=== PATIENT | male | born 1950 | race Hispanic/Latino ===

== ENCOUNTER 2017-05-10 18:51 | Emergency (ER) | payer OTHER, MEDICARE ==
[~2017-05-10] VITALS: Ht 165.1 cm; Wt 88.5 kg
[2017-05-10 19:07] VITALS: BP 152/67
[2017-05-10] MEDS ORDERED: LEVOTHYROXINE112 MCG PO (20:26)
[2017-05-10] MEDS ORDERED: SIMVASTATIN20 M2 PO (20:27)
[2017-05-10] MEDS ORDERED: CARVEDILOL25 M1 PO (20:27)
[2017-05-10] MEDS ORDERED: ALLOPURINOL300 M1 PO (20:27)
[2017-05-10] MEDS ORDERED: PANTOPRAZOLE SO40 M1 PO (20:27)
[2017-05-10] MEDS ORDERED: DILTIAZEM 24HR240 MG PO (20:27)
--- NOTE | 2017-05-10 20:38 | ED HEAD/FACIAL INJ COMPLAINT ---
History of Present Illness General Chief Complaint: Facial or Head Injury Stated Complaint: LAC TO HEAD S/P FALL Source: patient, family Exam Limitations: language barrier Vital Signs & Intake/Output Vital Signs & Intake/Output Vital Signs Date Time Temp Pulse Resp B/P B/P Pulse O2 O2 Flow FiO2 Mean Ox Delivery Rate 05/107 98.3 76 15 152/67 96 Room Air Room Air ED Intake and Output 05/11 0000 05/10 1200 Intake Total Output Total Balance Patient 195 lb Weight Weight Reported by Patient Measurement Method Allergies Coded Allergies: No Known Allergies (05/10/17) Reconcile Medications Allopurinol 300 MG TABLET 1 TAB PO DAILY GOUT (Reported) Augmentin (Augmentin 500-125 Tablet) 500 MG-125 MG TABLET 1 TAB PO BID EAR LACERATION Carvedilol 25 MG TABLET 1 TAB PO BID BP (Reported) Diltiazem HCl (Diltiazem 24HR ER) 240 MG CAP.ER.24H 1 CAP PO DAILY HEART/BP ( Reported) Levothyroxine Sodium 112 MCG TABLET 1 TAB PO DAILY THYROID (Reported) Pantoprazole Sodium 40 MG TABLET.DR 1 TAB PO DAILY GI (Reported) Simvastatin (Simvastatin*) 20 MG TABLET 1 TAB PO QPM CHOLESTEROL (Reported) Triage Note: PT TO ED FOR C/C OF LAC TO LEFT EAR AND SCRATCH TO HEAD S/P FALLING BACKWARDS INTO METAL WILMAR FENCE. PT UNSURE OF LAST TETANUS SHOT. BLEEDING CONTROLLED IN TRIAGE. DENIES LOC. Triage Nurses Notes Reviewed? yes Onset: Abrupt Severity: mild Severity Numbers: 1 HPI: Patient is a 66-year-old male who presents emergency room with in which patient's primary language is [place]ian only however he does state and his does help translate on occasion that he has a history of bilateral knee pain where he was in a crouched knee position where he tried to stand up where he felt pain to his knees where he stops, he fell backwards striking the left year to a wilmar metal fence resulting in laceration to the left ear. Patient denies any preceding episodes or lightheaded or dizziness sensation. Denies any loss of consciousness. Denies any headache neck pain back pain blurred vision photophobia nausea or vomiting. No medications given prior to arrival. Tetanus is unknown denies any pain currently (ANDREA LEÓN,KAREN) Past History Travel History Traveled to [place] past 21 day No Medical History Any Pertinent Medical History? see below for history Cardiovascular: hypertension, hyperlipidemia Gastrointestinal: GERD Musculoskeletal: gout Endocrine: HYPOTHYROIDISM Surgical History Surgical History: non-contributory Psychosocial History What is your primary language Icelandic Tobacco Use: Quit >30 days ago ETOH Use: occasional use Illicit Drug Use: denies illicit drug use Family History Hx Contributory? No (KAREN MINAYA) Review of Systems Review of Systems Constitutional: Reports: no symptoms. EENTM: Reports: see HPI, ear discharge. Respiratory: Reports: no symptoms. Cardiovascular: Reports: no symptoms. GI: Reports: no symptoms. Genitourinary: Reports: no symptoms. Musculoskeletal: Reports: no symptoms. Skin: Reports: no symptoms. Neurological/Psychological: Reports: no symptoms. Hematologic/Endocrine: Reports: see HPI, bleeding. Immunologic/Allergic: Reports: no symptoms. All Other Systems: Reviewed and Negative (KAREN MINAYA) Physical Exam Physical Exam General Appearance: no apparent distress, alert, comfortable Cranial Nerves: normal hearing, normal speech, PERRL Comments: Well-developed well-nourished person in no acute distress HEENT: extraocular motion intact, no nystagmus. Pupils equally round and reactive to light and accommodation. Nose is atraumatic. Left ear noted -SEE DIAGRAM. External auditory canal and Tympanic membranes clear. Pharynx normal. No swelling or edema. Neck: Supple, no lymphadenopathy, normal range of motion without pain or tenderness Back: Nontender, no CVA tenderness. Cardiovascular: Regular rate and rhythms no murmurs rubs or gallops, normal JVP Respiratory: Chest nontender. No respiratory distress.breath sounds clear to auscultation bilaterally Abdomen: Soft, nontender nondistended, no appreciable organomegaly. Normal bowel sounds. No ascites Extremity: No edema, no calf tenderness to palpation, normal and equal pulses. Neuro: Alert oriented x3, motor sensory normal, cranial nerves II through XII grossly intact. Skin: No appreciable rash on exposed skin, skin is warm and dry. Psych: Mood and affect is normal, memory and judgment is normal. Diagram Head: 1) Noted irregular superficial 2 cm stellate laceration 2) 1 cm clean linear superficial laceration (KAREN MINAYA) Progress Differential Diagnosis: c-spine injury, facial fracture, globe injury, ICH, orbit fracture, skull fracture Plan of Care: Current Medications Sig/Yaz Start time Last Medication Dose Stop Time Status Admin Tetanus/Diphtheria 0.5 ML ONCE ONE 05/10 2045 AC Toxoids Adsorbed 05/10 2046 (Decavac) In total #13 Polysorb sutures were placed bacitracin was applied. Cranial nerves intact NEXUS CRITERIA 0 No basilar skull fracture signs no hemotympanum no headache no severe mechanism injury at this time I do not suspect patient have ICH and patient is not warranting CT scan of head at this time patient upon discharge looks well no apparent distress and will comply with discharge instructions and had noQUESTIONS (KAREN MINAYA) Departure Departure Disposition: HOME OR SELF CARE Condition: Stable Clinical Impression Primary Impression: Laceration of left ear, external Referrals: EVA GEE,JASWANT Fernandez (PCP/Family) Additional Instructions: As discussed begin to apply bacitracin to area ONE TIME A day for the following 5 days then the area open and dry and clean YOU can to improve healing. Begin the prescription of Augmentin to prevent infection. If you note signs of infection redness, pain, swelling, discharge return to the emergency room. Follow-up with your primary care doctor in 7-10 days for recheck of the left ear The sutures that have been applied will fall off on their own Prescriptions waiting at [facility] Departure Forms: Customer Survey General Discharge Information Prescriptions: Current Visit Scripts Augmentin (Augmentin 500-125 Tablet) 1 TAB PO BID #14 TAB (KAREN MINAYA) PA/HEAD GOLF COACH Co-Sign Statement Statement: ED Attending supervision documentation- [] I saw and evaluated the patient. I have also reviewed all the pertinent lab results and diagnostic results. I agree with the findings and the plan of care as documented in the PA's/HEAD GOLF COACH's documentation. [x] I have reviewed the ED Record and agree with the PA's/HEAD GOLF COACH's documentation. [] Additions or exceptions (if any) to the PAs/HEAD GOLF COACH's note and plan are summarized below: [] (EDOUARD GEE,RUBEN Kendrick) Procedures Laceration/Wound Repair Laceration/Wound Repair: 1 Wound Location: LEFT EAR Wound's Depth, Shape: superficial Wound Length (cm): 2 Wound Explored: clean, no foreign body removed, irrigated extensively Irrigated w/ Saline (ccs): 300 Betadine Prep? Yes Anesthesia: 1% lidocaine Volume Anesthetic (ccs): 3 Wound Repaired With: sutures (POLYSORB) Suture Size/Type: 5:0 Number of Sutures: 10 Laceration/Wound Repair: 2 Wound Location: LEFT EAR LOBE Wound's Depth, Shape: linear, superficial Wound Length (cm): 1 Wound Explored: clean, no foreign body removed, irrigated extensively Irrigated w/ Saline (ccs): 200 Betadine Prep? Yes Anesthesia: 1% lidocaine Volume Anesthetic (ccs): 2 Wound Repaired With: sutures (POLYSORB) Suture Size/Type: 5:0 Number of Sutures: 3 Progress: Margins were revised the suture placement in total #13 sutures were placed. Bacitracin was applied (KAREN MINAYA)
[2017-05-10] MEDS ORDERED: AUGMENTIN 500-1 EACH PO (21:56)
== END 2017-05-10 22:04 ==
LOC: ERH 18:51
DX: S01.312A Laceration without foreign body of left ear, initial encounter (principal); W18.09XA Striking against other object with subsequent fall, initial encounter; Y92.9 Unspecified place or not applicable; Y93.9 Activity, unspecified
CPT/HCPCS: 90471; 90714